=== PATIENT | female | born 1965 | race American Indian/Alaskan Native ===

== ENCOUNTER 2017-02-22 07:41 | Emergency (ER) | payer OTHER ==
--- NOTE | 2017-02-22 08:27 | ED PDOC ---
Upper Extremity Pain/Injury Time Seen by Provider: 02/22/17 08:00 Chief Complaint (Nursing): Upper Extremity Problem/Injury Chief Complaint (Provider): Upper Extremity Problem/Injury History Per: Patient History/Exam Limitations: no limitations Onset/Duration Of Symptoms: Days (x2 days) Current Symptoms Are (Timing): Still Present Additional Complaint(s): 51 y/o female with past medical history of diabetes and hypertension presents to the emergency department with a complaint of right shoulder pain x2 days. Pain worsens with arm above horizontally. Denies trauma or weakness. Past Medical History Reviewed: Historical Data, Nursing Documentation, Vital Signs - Medical History PMH: Anemia, CAD, CVA, Diabetes, HTN, Hypercholesterolemia, Hyperlipidemia, Hypothyroidism, Kidney Stones, Chronic Kidney Disease, TIA - Surgical History Surgical History: Coronary Stent (x 2) - Family History Family History: States: Unknown Family Hx - Home Medications Home Medications: Ambulatory Orders Medication Instructions Recorded [id number] Ethyl Esters [Lovaza] 2 cap PO DAILY 06/20/14 Prednisolone [Prednisolone] 1 tab PO DAILY 06/20/14 Amlodipine Besylate [Norvasc] 5 mg PO DAILY 03/28/15 Aspirin [Aspirin EC] 81 mg PO DAILY 03/28/15 Atorvastatin [Lipitor] 40 mg PO DAILY 03/28/15 Carvedilol [Coreg] 25 mg PO BID 03/28/15 Ferrous Sulfate [Ferrous Sulfate] 325 mg PO DAILY 03/28/15 Glipizide [Glipizide] 1 tab PO DAILY 03/28/15 Levothyroxine Sodium [Synthroid] 1 tab PO DAILY 03/28/15 Linagliptin [Tradjenta] 1 tab PO DAILY 03/28/15 Metformin HCl [Metformin] 1,000 mg PO BID 03/28/15 Multivit,Iron,Min 5/Folic Acid 1 tab PO DAILY 03/28/15 [Strovite Forte] Pantoprazole Sodium [Protonix] 40 mg PO DAILY 03/28/15 Prasugrel [Effient] 1 tab PO DAILY 03/28/15 Sulfamethoxazole/Trimethoprim 1 tab PO BID #14 tab 01/01/16 [Bactrim DS 800 mg-160 mg] Naproxen [Naprosyn] 500 mg PO Q12H #20 tab 02/22/17 - Allergies Allergies/Adverse Reactions: Allergies Allergy/AdvReac Type Severity Reaction Status Date / Time No Known Allergies Allergy Verified 01/01/16 09:05 Review of Systems ROS Statement: Except As Marked, All Systems Reviewed And Found Negative Constitutional: Negative for: Other (trauma) Musculoskeletal: Positive for: Shoulder Pain (Right sided) Neurological: Negative for: Weakness Physical Exam - Reviewed Nursing Documentation Reviewed: Yes Vital Signs Reviewed: Yes - Physical Exam Appears: Positive for: Well, Non-toxic, No Acute Distress Head Exam: Positive for: ATRAUMATIC, NORMOCEPHALIC Skin: Positive for: Normal Color, Warm, Dry Extremity: Positive for: Tenderness (Tenderness of the right shoulder; anterior bursa. Pain elicited on raising arm above horizontally. ). Negative for: Deformity Neurologic/Psych: Positive for: Alert, Oriented. Negative for: Motor/Sensory Deficits Medical Decision Making Medical Decision Making: Time: 8:00 Initial impression: Right shoulder pain Initial plan: --Shoulder Right (RAD) --Revaluation Scribe Attestation: Documented by Ana Moreau, acting as a scribe for Shravan Martinez MD. Provider Scribe Attestation: All medical record entries made by the Scribe were at my direction and personally dictated by me. I have reviewed the chart and agree that the record accurately reflects my personal performance of the history, physical exam, medical decision making, and the department course for this patient. I have also personally directed, reviewed, and agree with the discharge instructions and disposition. Disposition - Clinical Impression Clinical Impression: Bursitis - Patient ED Disposition Is Patient to be Admitted: No Counseled Patient/Family Regarding: Studies Performed, Diagnosis, Need For Followup, Rx Given - Disposition Referrals: Jerry Louie MD [Family Provider] - Disposition: Routine/Home Disposition Time: 10:07 Condition: FAIR Prescriptions: Naproxen [Naprosyn] 500 mg PO Q12H #20 tab Instructions: Shoulder Bursitis (ED)
--- NOTE | 2017-02-22 10:11 | RAD ---
PROCEDURE: Radiographs of the Right Shoulder HISTORY: pain COMPARISON: No prior. FINDINGS: BONES: Normal. No fracture. JOINTS: Normal. Glenohumeral and acromioclavicular joints preserved. No osteoarthritis. SOFT TISSUES: NormalSoft tissue calcifications seen adjacent to the right humeral head suspicious for calcified tendinitis. . OTHER FINDINGS: None. IMPRESSION: Findings suspicious for calcified tendinitis. Correlate clinically for possible rotator cuff tear. If indicated further assessment by MRI may be obtained.
== END 2017-02-22 10:13 | disposition home or self-care (01) ==
LOC: H.ER 07:41
DX: M75.51 Bursitis of right shoulder (principal); E11.22 Type 2 diabetes mellitus with diabetic chronic kidney disease; E78.00 Pure hypercholesterolemia, unspecified; I12.9 Hypertensive chronic kidney disease with stage 1 through stage 4 chronic kidney disease, or unspecified chronic kidney disease; Z79.82 Long term (current) use of aspirin; Z79.84 Long term (current) use of oral hypoglycemic drugs; Z86.73 Personal history of transient ischemic attack (TIA), and cerebral infarction without residual deficits; Z95.5 Presence of coronary angioplasty implant and graft; I25.10 Atherosclerotic heart disease of native coronary artery without angina pectoris

== ENCOUNTER 2017-09-08 11:46 | Emergency (ER) | payer OTHER ==
[2017-09-08 12:00] VITALS: BP 117/57; PULSE 81; RESP 18; TEMP 97; O2SAT 99
--- NOTE | 2017-09-08 12:34 | ED PDOC ---
HPI: Female Pain Time Seen by Provider: 09/08/17 11:47 Chief Complaint (Nursing): Female Genitourinary Chief Complaint (Provider): Flank pain History Per: Patient Additional Complaint(s): 52 yo female, PMH of CAD, HTN, Hypothyroid, High Cholesterol and DM, presents to ED with complaints of severe right sided flank pain that developed after she underwent stent removal in [facility] yesterday, by Dr. Osborne. Pt denies any fever, nausea or vomiting. Past Medical History Reviewed: Nursing Documentation, Vital Signs Vital Signs: Last Vital Signs Temp 97.0 F L 09/08/17 11:57 Pulse 81 09/08/17 11:57 Resp 18 09/08/17 11:57 BP 117/57 L 09/08/17 11:57 Pulse Ox 99 09/08/17 11:57 - Medical History PMH: Anemia, CAD, CVA, Diabetes, HTN, Hypercholesterolemia, Hyperlipidemia, Hypothyroidism, Kidney Stones, Chronic Kidney Disease, TIA - Surgical History Surgical History: Coronary Stent (x 2) - Family History Family History: States: Unknown Family Hx - Living Arrangements Living Arrangements: With Family - Social History Current smoker - smoking cessation education provided: No Alcohol: None Drugs: Denies - Home Medications Home Medications: Ambulatory Orders Medication Instructions Recorded [id number] Ethyl Esters [Lovaza] 2 cap PO DAILY 06/20/14 Prednisolone [Prednisolone] 1 tab PO DAILY 06/20/14 Amlodipine Besylate [Norvasc] 5 mg PO DAILY 03/28/15 Aspirin [Aspirin EC] 81 mg PO DAILY 03/28/15 Atorvastatin [Lipitor] 40 mg PO DAILY 03/28/15 Carvedilol [Coreg] 25 mg PO BID 03/28/15 Ferrous Sulfate [Ferrous Sulfate] 325 mg PO DAILY 03/28/15 Glipizide [Glipizide] 1 tab PO DAILY 03/28/15 Levothyroxine Sodium [Synthroid] 1 tab PO DAILY 03/28/15 Linagliptin [Tradjenta] 1 tab PO DAILY 03/28/15 Metformin HCl [Metformin] 1,000 mg PO BID 03/28/15 Multivit,Iron,Min 5/Folic Acid 1 tab PO DAILY 03/28/15 [Strovite Forte] Pantoprazole Sodium [Protonix] 40 mg PO DAILY 03/28/15 Prasugrel [Effient] 1 tab PO DAILY 03/28/15 Sulfamethoxazole/Trimethoprim 1 tab PO BID #14 tab 01/01/16 [Bactrim DS 800 mg-160 mg] Naproxen [Naprosyn] 500 mg PO Q12H #20 tab 02/22/17 Cephalexin [cephalexin] 500 mg PO BID #10 cap 09/08/17 traMADol [Ultram] 50 mg PO Q4 #10 tab 09/08/17 - Allergies Allergies/Adverse Reactions: Allergies Allergy/AdvReac Type Severity Reaction Status Date / Time No Known Allergies Allergy Verified 01/01/16 09:05 Review of Systems ROS Statement: Except As Marked, All Systems Reviewed And Found Negative Gastrointestinal: Positive for: Abdominal Pain Physical Exam - Reviewed Nursing Documentation Reviewed: Yes Vital Signs Reviewed: Yes - Physical Exam Appears: Positive for: Non-toxic, No Acute Distress, Uncomfortable Head Exam: Positive for: ATRAUMATIC, NORMAL INSPECTION, NORMOCEPHALIC Skin: Positive for: Normal Color, Warm, DRY Eye Exam: Positive for: EOMI, Normal appearance, PERRL ENT: Positive for: Normal ENT Inspection Neck: Positive for: Normal, Painless ROM Cardiovascular/Chest: Positive for: Regular Rate, Rhythm Respiratory: Positive for: CNT, Normal Breath Sounds Gastrointestinal/Abdominal: Positive for: Bowel Sounds, Soft, Tenderness Back: Positive for: Normal Inspection, R CVA Tenderness Extremity: Positive for: Normal ROM Neurologic/Psych: Positive for: Alert, Oriented - Laboratory Results Result Diagrams: 09/08/17 13:15 09/08/17 13:15 - ECG O2 Sat by Pulse Oximetry: 99 Medical Decision Making Medical Decision Making: IV access established and treatment initiated with IVF, Ancef and Toradol Labs resulted and reviewed with Pt who demonstrated full understanding. Pt reports feeling improved on re-eval IMPRESSION: Multiple primarily right-sided nonobstructing calculi none of which appear to be obstructing. The overall appearance suggests lithotripsy in fragments of the larger calculus identified on the prior study. Otherwise unremarkable study. Case discussed with Pt's Urologist, Dr. Osborne , who agrees Pt stable for discharge, will follow up in office as scheduled. Disposition - Clinical Impression Clinical Impression: Renal colic - Patient ED Disposition Is Patient to be Admitted: No - Disposition Disposition: Routine/Home Disposition Time: 16:16 Condition: STABLE Prescriptions: Cephalexin [cephalexin] 500 mg PO BID #10 cap traMADol [Ultram] 50 mg PO Q4 #10 tab Instructions: Renal Colic (ED) Forms: [employer] (E[place]ian)
[2017-09-08] MEDS ORDERED: Sodium Chloride 0.9% 1,000 ML IV STA (13:01)
[2017-09-08] MEDS ORDERED: ceFAZolin IV 1 gm in Dextrose 1 GM/50 ML BAG IVPB ONE ×2 (13:02→14:16)
[2017-09-08 13:42] LABS: BASO # 0.1 K/uL (0.0-0.2); BASO % 0.7 % (0.0-2.0); EOS # 0.1 K/uL (0.0-0.7); HEMATOCRIT 34.5 % (34.0-47.0); LYMPH # 2.5 K/uL (1.0-4.3); LYMPH % 33.3 % (20.0-40.0); MEAN CELL VOLUME 80.5 fl (81.0-99.0); MEAN CORPUSCULAR HEMOGLOBIN 26.5 pg (27.0-31.0); MEAN CORPUSCULAR HGB CONC 32.9 g/dL (33.0-37.0); MEAN PLATELET VOLUME 7.7 fl (7.2-11.7); MONO # 0.5 K/uL (0.0-0.8); NEUT # 4.5 K/uL (1.8-7.0); NRBC % 0.1 % (0.0-0.0); RED CELL DISTRIBUTION WIDTH 14.9 % (11.5-14.5); WHITE BLOOD COUNT 7.6 K/uL (4.8-10.8)
[2017-09-08 13:54] LABS: ALKALINE PHOSPHATASE 76 U/L (38-126); ALT/SGPT 39 U/L (9-52); AST/SGOT 27 U/L (14-36); BILIRUBIN,TOTAL 0.5 mg/dl (0.2-1.3); BLOOD UREA NITROGEN 16 mg/dl (7-17); CALCIUM 10.1 mg/dL (8.4-10.2); CARBON DIOXIDE 23 mmol/L (22-30); CHLORIDE 102 mmol/L (98-107); GFR AFRICAN-AMERICAN > 60; GLUCOSE,RANDOM 136 mg/dL (65-105); POTASSIUM 3.8 MMOL/L (3.6-5.0); SODIUM 140 mmol/l (132-148); TOTAL PROTEIN 8.7 G/DL (6.3-8.2)
[2017-09-08 13:55] LABS: PARTIAL THROMBOPLASTIN TIME 32.2 Seconds (25.6-37.1)
[2017-09-08 14:09] LABS: ALB/GLOB RATIO 1.3 (1.0-2.1)
[2017-09-08 14:16] LABS: RBC URINE 1131 /hpf (0-3); URINE BACTERIA RARE (<OCC); URINE BILIRUBIN NEGATIVE (NEGATIVE); URINE BLOOD LARGE (NEGATIVE); URINE COLOR YELLOW (YELLOW); URINE GLUCOSE (UA) 50 mg/dL (Normal); URINE KETONE NEGATIVE (NEGATIVE); URINE LEUKOCYTE ESTERASE NEG Leu/uL (Negative); URINE PROTEIN 100 mg/dL (NEGATIVE); URINE UROBILINOGEN 0.2-1.0 mg/dL (0.2-1.0); WBC URINE 4 /hpf (0-5)
--- NOTE | 2017-09-08 14:55 | CT ---
PROCEDURE: CT Abdomen and Pelvis without intravenous contrast HISTORY: r/o renal stone COMPARISON: 07/16/2017 TECHNIQUE: Unenhanced study. Neither oral nor intravenous contrast administered. Radiation dose: Total exam DLP = 1040.76 mGy-cm. This CT exam was performed using one or more of the following dose reduction techniques: Automated exposure control, adjustment of the mA and/or kV according to patient size, and/or use of iterative reconstruction technique. FINDINGS: LOWER THORAX: Unremarkable. LIVER: Unremarkable. No gross lesion or ductal dilatation. GALLBLADDER AND BILE DUCTS: Unremarkable. PANCREAS: Unremarkable. No gross lesion or ductal dilatation. SPLEEN: Unremarkable. ADRENALS: Unremarkable. No mass. KIDNEYS AND URETERS: Nonobstructing renal calculus disease primarily on the right. The staghorn type calculus identified on the prior study now appears in multiple smaller fragments the largest in the lower pole collecting system measures 7 x 10.5 mm. . Incidental less than 2 mm calculus lower pole collecting system left kidney. VASCULATURE: Unremarkable. No aortic aneurysm. BOWEL: Unremarkable. No obstruction. No gross mural thickening. APPENDIX: Unremarkable. Normal appendix. PERITONEUM: Unremarkable. No free fluid. No free air. LYMPH NODES: Unremarkable. No enlarged lymph nodes. BLADDER: Unremarkable. REPRODUCTIVE: Unremarkable. BONES: No acute fracture. OTHER FINDINGS: None. IMPRESSION: Multiple primarily right-sided nonobstructing calculi none of which appear to be obstructing. The overall appearance suggests lithotripsy in fragments of the larger calculus identified on the prior study. Otherwise unremarkable study.
--- NOTE | 2017-09-08 16:28 | US ---
PROCEDURE: Ultrasound of the Kidneys HISTORY: stent removal yesterday, severe pain COMPARISON: CT abdomen and pelvis from earlier the same day. TECHNIQUE: Grayscale imaging was performed. FINDINGS: RIGHT KIDNEY: Measures: 11.0 cm. Normal in size, contour and echogenicity. There are 10 mm and 9 mm nonobstructing stones in the lower pole. No solid mass lesion or hydronephrosis visualized. There is a 1.1 x 1.3 x 1.0 cm simple cyst in the upper pole. LEFT KIDNEY: Measures: 10.5 cm. Normal in size, contour and echogenicity. No stone, solid mass lesion or hydronephrosis visualized. OTHER FINDINGS: None. IMPRESSION: 10 mm and 9 mm nonobstructing stones in the lower pole of the right kidney. No hydronephrosis. No left nephrolithiasis or hydronephrosis.
== END 2017-09-08 16:04 | disposition home or self-care (01) ==
LOC: H.ER 11:46
DX: N23 Unspecified renal colic (principal); E03.9 Hypothyroidism, unspecified; E11.22 Type 2 diabetes mellitus with diabetic chronic kidney disease; E78.00 Pure hypercholesterolemia, unspecified; I12.9 Hypertensive chronic kidney disease with stage 1 through stage 4 chronic kidney disease, or unspecified chronic kidney disease; Z79.82 Long term (current) use of aspirin; Z79.84 Long term (current) use of oral hypoglycemic drugs; Z86.73 Personal history of transient ischemic attack (TIA), and cerebral infarction without residual deficits; Z95.5 Presence of coronary angioplasty implant and graft
CPT/HCPCS: 74176; 76770; 80053; 81003; 81025; 85025; 85610; 85730; 96365; 96375; 99283; J0690; J1885; J2405; J7040